=== PATIENT | female | born 1970 | race Caucasian/White ===

== ENCOUNTER 2017-02-04 09:20 | Emergency (ER) | payer MEDICAID, OTHER ==
[~2017-02-04] VITALS: Ht 154.9 cm; Wt 104.8 kg
[2017-02-04] MEDS ORDERED: LIDOcaine 1% 30ml vial SQ STA ×2 (10:21→10:23)
[2017-02-04] MEDS ORDERED: MUPI22OI30 TOP (11:01)
[2017-02-04] MEDS ORDERED: BACDS PO (11:17)
[2017-02-04 12:22] LABS: URINE HCG NEGATIVE (NEG)
[2017-02-04] MEDS ORDERED: sulfamethoxazole/trimethoprim DS (800/160mg) tablet PO ONE (12:25)
[2017-02-04 12:36] VITALS: BP 167/107
[2017-03-25] MEDS ORDERED: ERYT1OIN6 EACHEYE (11:05)
[2017-03-25] MEDS ORDERED: PENI500T2 PO (11:05)
[2017-03-25] MEDS ORDERED: IBUP-1984 PO (11:24)
[2017-03-27] MEDS ORDERED: GUAI473S11 PO (11:15)
[2017-03-27] MEDS ORDERED: PHEN30SP9 PO (11:15)
[2017-03-27] MEDS ORDERED: PRED50TA PO (11:15)
[2017-03-27] MEDS ORDERED: ONDA4TAB12 PO (11:23)
[2017-03-27] MEDS ORDERED: AMOX500C2 PO (11:23)
== END 2017-02-04 12:39 | disposition home or self-care (01) ==
LOC: ER 09:20
DX: S61.200A Unspecified open wound of right index finger without damage to nail, initial encounter (principal); L02.511 Cutaneous abscess of right hand; E78.00 Pure hypercholesterolemia, unspecified; I10 Essential (primary) hypertension; Z79.899 Other long term (current) drug therapy; W57.XXXA Bitten or stung by nonvenomous insect and other nonvenomous arthropods, initial encounter; Y93.89 Activity, other specified; Y92.89 Other specified places as the place of occurrence of the external cause; Y99.8 Other external cause status
CPT/HCPCS: 10060; 81025; 99283; J3490